=== PATIENT | male | born 1955 | race Caucasian/White ===

== ENCOUNTER 2024-12-19 18:29 | Emergency (ER) | payer MEDICARE, MEDICAID ==
[2024-12-19] MEDS: Ketorolac 30 MG/ML SDV IM ONE (19:27)
[2024-12-19] MEDS: Take Home: Amoxicillin/Clavulanate K 875-125 MG Tab, 6 Tab Pack PO ONE (19:42)
== END 2024-12-19 19:46 | disposition home or self-care (01) ==
LOC: DL.ED 18:29
DX: K04.7 Periapical abscess without sinus (principal); Z79.899 Other long term (current) drug therapy
CPT/HCPCS: 96372; 99282; A9270; J1885